=== PATIENT | female | born 1990 | race Hispanic/Latino ===

== ENCOUNTER 2024-06-17 12:25 | Inpatient (IN) | payer MEDICAID, OTHER ==
[2024-06-17] MEDS ORDERED: HYDROcodone/Acetaminophen 5/325 mg Tablet PO PRN ×2 (13:02→20:08)
[2024-06-17] MEDS ORDERED: Misoprostol 200 MCG TAB PR PRN (13:02)
[2024-06-17] MEDS ORDERED: fentaNYL 50 mcg/mL 1 mL Vial SLOW IVP PRN (13:02)
[2024-06-17] MEDS ORDERED: Ibuprofen 800 MG TAB PO PRN (13:02)
[2024-06-17] MEDS ORDERED: Acetaminophen 500 MG TAB PO PRN (13:02)
[2024-06-17] MEDS ORDERED: Diphenoxylate HCl/Atropine Tablet PO PRN (13:02)
[2024-06-17] MEDS ORDERED: Tranexamic Acid 1,000 MG/10 ML VIAL IVP PRN (13:02)
[2024-06-17] MEDS ORDERED: Methylergonovine 0.2 MG/ML VIAL IM PRN (13:02)
[2024-06-17] MEDS ORDERED: Ondansetron PF 4 MG/2 ML Vial IVP PRN ×3 (13:02→20:08)
[2024-06-17] MEDS ORDERED: Lidocaine 1% (PF) 30 ML VIAL SC PRN (13:02)
[2024-06-17] MEDS ORDERED: Promethazine HCl 25 MG/ML VIAL IM PRN ×2 (13:02→14:12)
[2024-06-17] MEDS ORDERED: Carboprost 250 MCG/ML AMP IM PRN (13:02)
[2024-06-17] MEDS ORDERED: hydrALAZINE 20 MG/ML VIAL SLOW IVP PRN ×2 (13:02→20:08)
[2024-06-17] MEDS ORDERED: Oxytocin 30 units/NS 500 ML 500 ML IV SCH ×3 (13:15)
[2024-06-17 13:37] LABS: Hematocrit 31.8 % (34.9-44.5); Hemoglobin 11.4 g/dL (12.0-15.5); Mean Corpuscular HGB CONC 35.8 g/dL (32.0-36.0); Mean Corpuscular Hemoglobin 33.2 pg (27.0-33.0); Mean Corpuscular Volume 92.7 fL (81.6-98.3); Mean Platelet Volume 9.5 fL (7.4-10.4); Platelet Count 359 10x3/uL (150-450); RBC Distribution Width 11.9 % (11.5-14.5); Red Blood Cell (RBC) Count 3.43 10x6/uL (3.90-5.03)
[2024-06-17] MEDS: fentaNYL/Ropivacaine Epidural 100 ML ONE (13:51)
[2024-06-17] MEDS ORDERED: diphenhydrAMINE 50 MG/ML VIAL IVP PRN (14:12)
[2024-06-17] MEDS ORDERED: Moisturizing Cream (Eucerin) 113 GM JAR TOP PRN (14:12)
[2024-06-17] MEDS ORDERED: Lactated Ringer's 500 ML IV PRN (14:12)
[2024-06-17] MEDS ORDERED: ePHEDrine Sulfate 50 MG/10 ML VIAL SLOW IVP PRN (14:12)
[2024-06-17] MEDS ORDERED: Acetaminophen 325 MG TAB PO PRN (14:12)
[2024-06-17] MEDS ORDERED: Naloxone HCl 0.4 mg/ml Vial IVP PRN ×2 (14:12)
[2024-06-17 14:15] LABS: Syphilis Antibody Nonreactive (Nonreactive); Syphilis Antibody Index 0.07 S/CO (<1.00 Non-Reactive)
[2024-06-17] MEDS ORDERED: fentaNYL 2 mcg/Ropivacaine 0.2% Epidural 100 ML CADD EPIDURAL SCH (14:15)
[2024-06-17] MEDS ORDERED: Communication Order-Pharmacy FS SCH (14:15)
[2024-06-17 14:17] LABS: HBsAg Index 0.18 S/CO (0-0.99); Hep B Surf Ag - L&D Non-Reactive S/CO (NonReactive)
[2024-06-17 14:37] VITALS: BMI 33.8
[2024-06-17] MEDS: Lactated Ringer's 1,000 ML IV SCH (19:17)
[2024-06-17] MEDS: Oxytocin 30 units/NS 500 ML 500 ML ONE (19:17)
[2024-06-17] MEDS ORDERED: Lanolin Ointment 7 GM TUBE TOP PRN (20:08)
[2024-06-17] MEDS ORDERED: Bisacodyl 10 MG SUPP PR PRN (20:08)
[2024-06-17] MEDS ORDERED: diphenhydrAMINE 25 MG CAP PO PRN (20:08)
[2024-06-17] MEDS ORDERED: Milk Of Magnesia 30 ML UDCUP PO PRN (20:08)
[2024-06-17] MEDS ORDERED: Boostrix 0.5 ML (Tdap) VIAL (>/=7 yrs of age) IM ONE (20:08)
[2024-06-17] MEDS: Ibuprofen 800 MG TAB PO SCH (21:14)
[2024-06-17] MEDS: Docusate 100 MG CAP PO SCH (21:14)
[2024-06-18] MEDS: Prenatal Vitamin 1 TAB PO SCH (08:25)
[2024-06-18] MEDS: Ferrous Sulfate 325 MG TAB PO SCH (11:00)
[2024-06-18 15:42] VITALS: TEMP 97.7
[2024-06-18 20:54] VITALS: BP 110/56
== END 2024-06-18 19:50 | disposition home or self-care (01) | DRG 807 ==
LOC: CSHLD 12:25 → CSHPP 20:00
PROVIDERS: ADMIT Family Medicine; ATTEND Family Medicine
PROC: 10E0XZZ Delivery of Products of Conception, External Approach (ICD-10-PCS; principal; 2024-06-17)
PROC: 10907ZC Drainage of Amniotic Fluid, Therapeutic from Products of Conception, Via Natural or Artificial Opening (ICD-10-PCS; 2024-06-17)
DX: O99.284 Endocrine, nutritional and metabolic diseases complicating childbirth (principal); Z37.0 Single live birth; Z3A.36 36 weeks gestation of pregnancy; E03.9 Hypothyroidism, unspecified; O77.0 Labor and delivery complicated by meconium in amniotic fluid
CPT/HCPCS: 36415; 51702; 85027; 86780; 86850; 86900; 86901; 87340